=== PATIENT | female | born 1995 | race Two or more races ===

== ENCOUNTER 2019-07-24 13:37 | Emergency (ER) | payer OTHER ==
[~2019-07-24] VITALS: Ht 177.8 cm; Wt 84.1 kg
[2019-07-24 13:39] VITALS: BP 136/71
[2019-07-24] MEDS ORDERED: TIZA4CAP6 PO (14:29)
== END 2019-07-24 14:39 | disposition left against medical advice (07) ==
LOC: M ED 13:37
DX: Z53.21 Procedure and treatment not carried out due to patient leaving prior to being seen by health care provider (principal)

== ENCOUNTER → 2019-09-22 | Outpatient (CLI) | payer OTHER ==
[~2019-09-22] MED LIST: TIZA4CAP6 PO
--- NOTE | 2019-09-22 12:07 | REP ---
MRI lumbar spine: 09/22/2019. Indication: Lumbar radiculopathy. Comparison: None. Technique: Multiplanar short and long TR sequences of the lumbar spine were obtained without IV Gadolinium. Findings: Vertebral body alignment is anatomic. Disc dessication is present at L5/S1. The visualized spinal cord is normal. No significant paraspinal soft tissue abnormalities are detected. No worrisome marrow signal is present. L1/L2, L2/L3, L3/L4 and L4/L5: There is no focal disc herniation or significant spinal canal / neural foraminal narrowing. L5/S1: There is a posterior central annular fissure with associated small disc extrusion with minimal caudal migration. There is no nerve root impingement. The neural foramina are patent. Impression: Small posterior central L5/S1 disc herniation as described without nerve root impingement. Electronically Signed by Hernandez Dowd DO 09/22/2019 11:58 A
== END ==
LOC: M RAD 09:45
PROVIDERS: ATTEND Physician Assistant
DX: M51.26 Other intervertebral disc displacement, lumbar region (principal)

== ENCOUNTER 2020-05-02 18:49 | Emergency (ER) | payer OTHER ==
[~2020-05-02] VITALS: Ht 177.8 cm; Wt 82.0 kg
[2020-05-02] MEDS ORDERED: YAZ1TAB (18:56)
[2020-05-02] MEDS ORDERED: NAPR-885 (18:56)
[2020-05-02] MEDS ORDERED: NS 500 ML IV ONE (19:15)
[2020-05-02 19:52] LABS: BASO % 0.3 % (0.0-1.0); EOS # 0.2 10^3/uL (0.0-0.5); EOS % 1.7 % (0.0-3.0); HEMATOCRIT 38.5 % (36.0-47.0); HEMOGLOBIN 12.8 g/dl (12.0-15.5); LYMPH # 3.2 10^3/uL (1.5-5.0); LYMPH % 35.1 % (24.0-44.0); MEAN CORPUSCULAR HEMOGLOBIN 29.2 pg (27.0-33.0); MEAN CORPUSCULAR HGB CONC 33.2 g/dl (32.0-36.5); MEAN CORPUSCULAR VOLUME 87.7 fl (80.0-96.0); MONO # 0.8 10^3/uL (0.0-0.8); MONO % 9.3 % (0.0-5.0); NEUTROPHILS # 4.8 10^3/uL (1.5-8.5); NEUTROPHILS % 53.3 % (36.0-66.0); PLATELET COUNT, AUTOMATED 230 10^3/uL (150-450); RED BLOOD COUNT 4.39 10^6/uL (4.00-5.40)
[2020-05-02 20:18] LABS: ALBUMIN 3.6 GM/DL (3.2-5.2); ALT/SGPT 25 U/L (12-78); BILIRUBIN,DIRECT 0.1 MG/DL (0.0-0.2); BILIRUBIN,TOTAL 0.3 MG/DL (0.2-1.0); BLOOD UREA NITROGEN 16 MG/DL (7-18); CALCIUM LEVEL 8.8 MG/DL (8.5-10.1); CARBON DIOXIDE LEVEL 29 MEQ/L (21-32); CHLORIDE LEVEL 107 MEQ/L (98-107); CK-MB VALUE MASS < 1.0 NG/ML (<3.6); CPK CREATINE PHOSPHOKINASE 118 U/L (26-192); CREATININE FOR GFR 0.77 MG/DL (0.55-1.30); GLOMERULAR FILTRATION RATE > 60.0 (>60); GLUCOSE, FASTING 105 MG/DL (70-100); LIPASE 118 U/L (73-393); MB/CK RELATIVE INDEX 0.85 (< OR =4); NT-PRO BNP 122 PG/ML (<125); POTASSIUM SERUM 3.7 MEQ/L (3.5-5.1); SODIUM LEVEL 142 MEQ/L (136-145); TOTAL PROTEIN 6.6 GM/DL (6.4-8.2); TROPONIN I < 0.02 NG/ML (< 0.10)
[2020-05-02] MEDS ORDERED: ISOVUE-370 76% 100ML VIAL As Ordered ONE (20:25)
--- NOTE | 2020-05-02 20:53 | REPVR ---
PROCEDURE INFORMATION: Exam: CT Angiography Chest With Contrast Exam date and time: 05/02/2020 8:27 PM Age: 24 years old Clinical indication: Chest pain; Additional info: Chest pain with elevated d dimer. R/O pe TECHNIQUE: Imaging protocol: Computed tomographic angiography of the chest with intravenous contrast. 3D rendering: MIP and/or 3D reconstructed images were created by the technologist. Radiation optimization: All CT scans at this facility use at least one of these dose optimization techniques: automated exposure control; mA and/or kV adjustment per patient size (includes targeted exams where dose is matched to clinical indication); or iterative reconstruction. Contrast material: ISOVUE 370; Contrast volume: 75 ml; Contrast route: IV; COMPARISON: CR Chest, 2 view PA, Lat 05/02/2020 8:08 PM FINDINGS: Pulmonary arteries: There is no evidence of pulmonary emboli. Aorta: No thoracic aortic aneurysm or dissection. Lungs: No pulmonary consolidation. No ground-glass opacities. Pleural space: Unremarkable. No pneumothorax. No pleural effusion. Heart: Unremarkable. No cardiomegaly. No pericardial effusion. Lymph nodes: Unremarkable. No enlarged lymph nodes. Bones/joints: Unremarkable. No acute fracture. Soft tissues: Unremarkable. IMPRESSION: 1. No pulmonary artery emboli. 2. No thoracic aortic aneurysm or dissection. 3. No pulmonary disease. Electronically signed by: Angelo Chávez On 05/02/2020 20:53:18 PM
[2020-05-02 21:34] VITALS: BP 140/70
--- NOTE | 2020-05-02 21:52 | ECGEPIP ---
[facility] - ED Test Date: 2020-05-02 Pat Name: HALEY VAZ Department: Room: - Gender: Female Car Attendant: [facility] : 1995 Requested By: MONISHA EISENBERG Order Number: [id number] Reading MD: Da Monroy Measurements Intervals [place] Rate: 58 P: 46 MO: 139 QRS: 57 QRSD: 93 T: 40 QT: 426 QTc: 422 Interpretive Statements SINUS BRADYCARDIA POSSIBLE INCOMPLETE RIGHT BUNDLE BRANCH BLOCK NO PRIORS FOR COMPARISON Electronically Signed on 05-02-2020 21:51:48 EDT by Da Monroy
--- NOTE | 2020-05-03 08:36 | REP ---
Clinical: Acute left-sided chest pain . Comparison: None . Technique: PA and lateral. Findings: The mediastinum and cardiac silhouette are normal. The lung villar are clear and without acute consolidation, effusion, or pneumothorax. The skeletal structures are intact and normal. Impression: 1. No acute cardiopulmonary process. Electronically Signed by Jairo Wood MD 05/03/2020 08:26 A
== END 2020-05-02 21:41 | disposition home or self-care (01) ==
LOC: M ED 18:49
DX: R07.9 Chest pain, unspecified (principal); R00.1 Bradycardia, unspecified; M54.5 Low back pain; G89.29 Other chronic pain; Z79.1 Long term (current) use of non-steroidal anti-inflammatories (NSAID); Z79.3 Long term (current) use of hormonal contraceptives
CPT/HCPCS: 36415; 71046; 71275; 80048; 80076; 82550; 82553; 83690; 83880; 84443; 84484; 85025; 85379; 93005; 96360; 99284; Q9967